=== PATIENT | male | born 1960 | race Caucasian/White ===

== ENCOUNTER 2018-03-19 06:21 | Day surgery (SDC) | payer OTHER ==
[~2018-03-19] VITALS: Ht 185.4 cm; Wt 121.6 kg
[~2018-03-19 06:21] MED LIST: ADVIL200 MG PO; LISINOPRIL-HCT1 EACH PO
--- NOTE | 2018-03-19 08:35 | NUR ---
[facility] AR[facility]IVED IN PACU SLEEPY WITH OXY MASK ON AT 5L. ABD SOFT. 0815 OXYGEN DECREASED TO 4L VIA OM WITH SATS 95%. 0820 OXYGEN DECREASED TO 2L VIA OM WITH SATS 94%. 0830 OXYGEN REMOVED. SATS 93% ON RA. ENCOURAGED CDB. PT MORE AWAKE AND SIPPING ON APPLE JUICE.
--- NOTE | 2018-03-19 10:44 | OR ---
[facility] [address], [place] [address] Signed DATE OF OPERATION: 03/19/2018 SURGEON: Paul Self MD UPPER AND LOWER ENDOSCOPY REPORT PREOPERATIVE DIAGNOSES: 1. Proximal esophageal dysphagia. 2. Screening. POSTOPERATIVE DIAGNOSES: 1. Moderate punctate hemorrhagic gastroduodenitis. 2. Moderate-sized hiatal hernia. 3. Distal esophagitis with linear ulcer. 4. 4 mm polyps at 145 and 18 cm. 5. Moderate internal hemorrhoids. PROCEDURES: 1. EGD with CLOtest and biopsies of the pyloric bulb, antrum and hiatal hernia. 2. Colonoscopy with hot biopsy. ESTIMATED BLOOD LOSS: None. INDICATIONS: Aung is a 57-year-old gentleman, asked to see me for both upper and lower endoscopy. He has had trouble with proximal esophageal dysphagia. He said particularly use pills. In 2007, his upper endoscopy showed a bit of gastritis. Colonoscopy was negative. As a result, he is also in need of followup screening colonoscopy. He told me there is no family history of colon cancer or polyps. I gave Aung booklets on upper and lower endoscopy in the office. He understands the nature of those 2 tests along with the risks including, but not limited to gas bloating, crampy abdominal pain, bleeding, perforation, requiring surgery, and missed diagnosis. He also understands the need for IV conscious sedation. He had expressed understanding and wished to proceed. PROCEDURE NOTE: Aung was taken into our endoscopy suite and placed in the supine semi-recumbent position. He was given a total of 10 mg of Versed and 200 mcg of fentanyl to cover both cases. He was also given antibiotic preop because of his bilateral hip replacements. The posterior oropharynx was anesthetized with Hurricaine spray. A bite block was Electronically Signed By: PAUL SELF MD 03/19/18 1044 PATIENT NAME: AUNG AGUIAR OPERATIVE REPORT DATE OF : 62 REPORT #: [id number] PHYSICIAN: PAUL SELF MD PCP: MICHELLE HEATON DO REPORT IS CONFIDENTIAL AND NOT TO BE RELEASED WITHOUT AUTHORIZATION [facility] [address], [place] [address] Signed utilized for the case. The adult gastroscope was introduced and advanced under direct visualization of the camera. We noticed that he has a fairly significant gag reflex even after Hurricaine spray. I suspect this is part of his issue was trying to swallow his pills. Eventually, after a few minutes we did get the scope into the esophagus and all the way out into the third portion of the duodenum. The duodenum was unremarkable except for the pyloric channel. It showed moderately significant inflammatory changes without an ulcer. We therefore took a biopsy of the pyloric bulb. The stomach also showed moderate punctate hemorrhagic gastritis throughout. We took a biopsy from the antrum for CLOtest as well as pathologic review. Upon retroflexion of the scope, he does have a hiatal hernia, but it was hard to see well because of the fluid in our way. I therefore withdrew this the scope up through the hiatal hernia and do suctioned out the fluid. We taken a biopsy just inside the hiatal hernia near the GE junction. He does have some disruption to the Z-line, but no Ramirez's esophagus. Although, he does have distal esophagitis consistent with some punctate areas of inflammation and a linear ulcer on the one side. No bleeding at this time. The middle and upper esophagus were unremarkable. After this, the gas was suctioned out and the gastroscope removed. Aung tolerated this procedure quite well. RECOMMENDATIONS: I will see Aung back in my office in 7 to 14 days to review his results. He needs to be on a proton-pump inhibitor twice a day for a good eight weeks to allow his stomach and his esophagus to heal than after that probably just once a day. Paul Self MD ALB/MODL /[id number] cc: DO Paul Zavaleta MD Copies: MICHELLE HEATON DO Electronically Signed By: PAUL SELF MD 03/19/18 1044 PATIENT NAME: AUGN AGUIAR OPERATIVE REPORT DATE OF : 62 REPORT #: [id number] PHYSICIAN: PAUL SELF MD PCP: MICHELLE HEATON DO REPORT IS CONFIDENTIAL AND NOT TO BE RELEASED WITHOUT AUTHORIZATION [facility] [address] [place] [address] Signed PAUL SELF MD ~ Electronically Signed By: PAUL SELF MD 03/19/18 1044 PATIENT NAME: AUNG AGUIAR OPERATIVE REPORT DATE OF : 62 REPORT #: [id number] PHYSICIAN: PAUL SELF MD PCP: MICHELLE HEATON DO REPORT IS CONFIDENTIAL AND NOT TO BE RELEASED WITHOUT AUTHORIZATION
--- NOTE | 2018-03-26 17:15 | OR ---
[facility] [address] [place], [place] [address] Signed DATE OF OPERATION: 03/19/2018 SURGEON: Paul Self MD PREOPERATIVE DIAGNOSIS: Screening. POSTOPERATIVE DIAGNOSES: 1. A 4 mm polyps at 145 and 18 cm. 2. Moderate internal hemorrhoids. PROCEDURE: Colonoscopy with hot biopsy. ESTIMATED BLOOD LOSS: None. INDICATIONS: Aung is a 57-year-old gentleman, who actually came for both his upper and lower endoscopy on 03/19/2018. We have already dictated his upper endoscopy. We are now dictating his colonoscopy. The colonoscopy is for screening purposes. He had a negative colonoscopy back in 2007. He said he has no family history of colon cancer or polyps. I gave him pamphlets on colonoscopy in the office and he understands the nature of that test along with the risks including, but not limited to, gas bloating, crampy abdominal pain, bleeding, perforation, requiring surgery, and missed diagnosis. He expressed understanding and wished to proceed. PROCEDURE NOTE: After Aung's upper endoscopy, we had rotated him into the left lateral decubitus position for his lower endoscopy. He had been given a total of 10 mg of Versed and 200 mcg of fentanyl to cover both cases. After this, a digital rectal exam was performed and this was unremarkable. The adult colonoscope was then introduced and advanced all around into the cecum under direct visualization of the camera. The above-mentioned polyps were removed with the help of hot biopsy forceps. Once down in the rectum, the scope had been retroflexed and he does have some internal hemorrhoids. After this, the gas was suctioned out and the colonoscope removed. Aung tolerated his procedures quite well. RECOMMENDATIONS: I will see Aung back in my office in 7 to 14 days to review his results. Electronically Signed By: PAUL SELF MD 03/26/18 1712 PATIENT NAME: AUNG AGUIAR OPERATIVE REPORT DATE OF : 62 REPORT #: [id number] PHYSICIAN: PAUL SELF MD PCP: ISSA HEATON DO REPORT IS CONFIDENTIAL AND NOT TO BE RELEASED WITHOUT AUTHORIZATION [address] [address] Signed MD DE Phillips/GLORIA /[id number] cc: MD Issa Phillips DO Copies: PAUL SELF MD, FRANK E DO ~ Electronically Signed By: PAUL SELF MD 03/26/18 1715 PATIENT NAME: AUNG AGUIAR OPERATIVE REPORT DATE OF : 62 REPORT #: [id number] PHYSICIAN: PAUL SELF MD PCP: ISSA HEATON DO REPORT IS CONFIDENTIAL AND NOT TO BE RELEASED WITHOUT AUTHORIZATION
== END 2018-03-19 08:50 | disposition home or self-care (01) ==
LOC: DS 06:21 → OPS 06:21 → DS 10:30
PROVIDERS: Colon & Rectal Surgery
PROC: 0DB48ZX Excision of Esophagogastric Junction, Via Natural or Artificial Opening Endoscopic, Diagnostic (ICD-10-PCS; 2018-03-19)
PROC: 0DBE8ZX Excision of Large Intestine, Via Natural or Artificial Opening Endoscopic, Diagnostic (ICD-10-PCS; 2018-03-19)
PROC: 0DB98ZX Excision of Duodenum, Via Natural or Artificial Opening Endoscopic, Diagnostic (ICD-10-PCS; principal; 2018-03-19 10:30)
PROC: 0DB78ZX Excision of Stomach, Pylorus, Via Natural or Artificial Opening Endoscopic, Diagnostic (ICD-10-PCS; 2018-03-19 10:30)
DX: Z12.11 Encounter for screening for malignant neoplasm of colon (principal); K63.5 Polyp of colon; K64.8 Other hemorrhoids; K29.50 Unspecified chronic gastritis without bleeding; K29.80 Duodenitis without bleeding; K44.9 Diaphragmatic hernia without obstruction or gangrene; K22.10 Ulcer of esophagus without bleeding; I10 Essential (primary) hypertension; F17.210 Nicotine dependence, cigarettes, uncomplicated; M47.816 Spondylosis without myelopathy or radiculopathy, lumbar region; M51.9 Unspecified thoracic, thoracolumbar and lumbosacral intervertebral disc disorder; K31.9 Disease of stomach and duodenum, unspecified; Z79.1 Long term (current) use of non-steroidal anti-inflammatories (NSAID); Z79.899 Other long term (current) drug therapy; Z29.8 Encounter for other specified prophylactic measures; Z96.643 Presence of artificial hip joint, bilateral
CPT/HCPCS: 86677; 99153; G0500; J2250; J3010; J7120

== ENCOUNTER 2023-03-18 05:49 | Day surgery (SDC) | payer OTHER ==
[2023-03-12 08:18] VITALS: BP 131/85
[~2023-03-18] VITALS: Ht 185.4 cm; Wt 118.2 kg
--- NOTE | ~2023-03-18 | OR ---
[facility] [address], [place] [address] Draft DATE OF OPERATION: 03/18/2023 SURGEON: Vinh Zurita MD PREOPERATIVE DIAGNOSIS: Incarcerated umbilical hernia. POSTOPERATIVE DIAGNOSIS: Incarcerated umbilical hernia, fascial defect 4 cm. PROCEDURES: 1. Repair of incarcerated umbilical hernia (fascial defect 4 cm). 2. Implantation of Prolene mesh underlay technique with reapproximation of fascia over mesh. ANESTHESIA: General LMA, Hamlet Patrick CRNA and local 10 mL of 0.25% Marcaine with epinephrine. INDICATION: This 62-year-old white man is a patient of KENNETH Helm and has seen Beatriz Colunga as well. He was evaluated by Beatriz Colunga for a bulge in the region of the umbilicus. He has had at least one or two episodes of severe abdominal pain. Clinical examination shows a somewhat tender hernia at the region of the umbilicus, which was not reducible, particularly. An ultrasound performed under the direction of KENNETH Silva, which showed a "fat containing supraumbilical ventral hernia." He is admitted at this time to undergo repair of the hernia. He understands the risk of bleeding, infection, recurrence and so on. FINDINGS: The incarcerated viscus was properitoneal fat. There was no sign of hollow viscus. The defect was ultimately 4 cm in size. Implantation of Prolene mesh in the properitoneal space was undertaken with an overlap of approximately 3 cm in closure of the fascial defect transversely. DESCRIPTION OF PROCEDURE: The patient was brought to the operating room, given a general LMA type anesthetic. Preoperative antibiotic Ancef was given. Sequential compression device stockings used and heparin subcutaneously administered. The central abdomen was clipped and prepared with a chlorhexidine solution and draped sterilely. A curvilinear incision was made to the left of the umbilicus and somewhat cephalad to it. Dissection was carried through PATIENT NAME: SAHRA AGUIAR OPERATIVE REPORT DATE OF : 62 REPORT #: [id number] PHYSICIAN: VINH ZURITA MD PCP: KYLE WEISS PA-C REPORT IS CONFIDENTIAL AND NOT TO BE RELEASED WITHOUT AUTHORIZATION [facility] [address], [place] [address] Draft the dermis with blunt and electrocautery dissection ultimately identifying the hernia sac contiguous with the dermis of the umbilical skin itself. This was dissected free with electrocautery. Once the umbilical skin and so forth was freed from the underlying hernia sac the fascia and the hernia sac was freed circumferentially. Herniated viscus appeared to be properitoneal fat and no sign of hollow viscus. This was ultimately placed into the properitoneal space. The properitoneal space was developed with a blunt and electrocautery dissection for approximately 3 cm circumferentially. The fascial defect was approximately 4 cm. A March 17, 2023of Prolene mesh was cut to a circular configuration and secured in the properitoneal space with interrupted 0 Prolene suture. The fascial defect was reapproximated directly over the mesh with interrupted 0 Prolene suture in a vertical mattress configuration. A 10 mL of 0.25% Marcaine with epinephrine was injected locally. The Timoteo layer was reapproximated with interrupted 2-0 Vicryl and the skin closed with running subcuticular 3-0 Vicryl. Steri-Strips were applied as was Acticoat dressing. The patient was ultimately extubated and transferred to recovery room in good condition having suffered no complications. Sponge, needle and instrument counts reported as correct x3. MD BRANDI Corley/ROXYL /[id number] cc: ALEKSANDRA Temple PA Copies: KYLE WEISS PA-C ~ PATIENT NAME: SAHRA AGUIAR OPERATIVE REPORT DATE OF : 62 REPORT #: [id number] PHYSICIAN: VINH ZURITA MD PCP: KYLE WEISS PA-C REPORT IS CONFIDENTIAL AND NOT TO BE RELEASED WITHOUT AUTHORIZATION
[~2023-03-18 05:49] MED LIST changes: +AZITHROMYCIN500 MG PO
[2023-03-18 06:08] VITALS: BP 122/80
--- NOTE | 2023-03-18 08:53 | NUR ---
03/18/23 0853 Sheets,Kim 0844 PT ARRIVED TO PACU ON 6L VIA MASK, PT MOVING AND AWAKE OFF AND ON PT REPORTS 4/10 PAIN AND NO NAUSEA. PAIN MEDICATION GIVEN BY LEARNING SUPPORT AIDE. 0848 O2 REMOVED. PLAN OF CARE DISCUSSED. 0852 O2 SAT LOW 90S AND DEEP BREATHING ENCOURAGED, EDUCATION GIVEN ON BRACING ABD WHILE COUGHING.
[2023-03-18] MEDS ORDERED: OXYCODON-ACETA1 EAC2 PO (08:56)
[2023-03-18] MEDS ORDERED: IBUPROFEN600 MG PO (08:56)
[2023-03-18] MEDS ORDERED: ACETAMINOPHEN500 MG PO (08:56)
[2023-03-18 09:15] VITALS: BP 116/72
--- NOTE | 2023-03-18 09:38 | NUR ---
[id number]: PT ARRIVES BACK TO DS RM 5 VIA STRETCHER DROWSY WITH NC IN PLACE. PT SATS GREATER THAN 90% WITH CONT PULSE OXIMETER IN PLACE. PT RATES PAIN 4/10 AND TOLERABLE AT THIS TIME. ABD BINDER IN PLACE AT BEDSIDE PER DR. ZURITA TO BE PLACED ONCE PT IS UP. DC CRITERIA EXPLAINED TO PT, CALL LIGHT WITHIN REACH. LIGHTS DIMMED WITH CLEAR VISIBILITY OF PT THROUGH GLASS DOOR.
[2023-03-18 10:18] VITALS: BP 107/76
--- NOTE | 2023-03-18 10:21 | NUR ---
PT RESTING IN BED AWAKE WATCHING TV. PT RATES PAIN 4/10 AND TOLERABLE AT THE MOMENT. PT EDUCATED ABOUT PAIN AND MOVEMENT, ENC TO EAT AND TRY PO PAIN RX PRIOR TO GETTING UP. CALL LIGHT REMAINS IN PLACE.
--- NOTE | 2023-03-18 10:49 | NUR ---
1040: PT WITH CALL FOR THIS RN. REPORTS URGE TO VOID. DANGLED AT THE BEDSIDE, FRED WELL. DENIES DIZZINESS AND SOB. AMBULATES TO BR WITH STANDBY FROM THIS RN. STEADY GAIT. SUCCESSFUL FIRST POSTOP VOID, 200MLS. TO ROOM 5 TO DRESS FOR DC
--- NOTE | 2023-03-18 10:53 | NUR ---
PT FAMILY CONTACTED FOR SAFE RIDE HOME, WILL BE HERE IN ABOUT 20 MINUTES. PT DRESSED AND EATING CRACKERS IN BED. PT DENIES USE OF ABDOMINAL BINDER AT THIS TIME.
[2023-03-18 11:05] VITALS: BP 120/67
--- NOTE | 2023-03-18 11:46 | NUR ---
1105: DC INSTRUCTIONS PRESENTED VERBALLY AND WRITTEN TO PT. PT AWARE OF NEED TO TAKE PAIN RX TO PHARMACY TO HAVE FILLED. PT TRANSFERS SELF FROM STRETCHER TO INDEPENDENTLY AND IS TRANSFERRED TO [facility]AF[facility] RIDE [facility]OSPITAL ENTRANCE VIA TO HOME.
--- NOTE | 2023-03-18 11:51 | NUR ---
CONNECTED WITH PT HE WAS BEING TAKEN TO FAMILY FOR RIDE HOME FOLLOWING DC. GAVE ENCOURAGEMENT, PT ACKNOWLEDGED.
== END 2023-03-18 11:15 | disposition home or self-care (01) ==
LOC: DS 05:49
PROVIDERS: ATTEND Surgery
PROC: 0WUF0JZ Supplement Abdominal Wall with Synthetic Substitute, Open Approach (ICD-10-PCS; principal; 2023-03-18 07:30)
DX: K42.0 Umbilical hernia with obstruction, without gangrene (principal); I10 Essential (primary) hypertension; Z72.0 Tobacco use; K21.9 Gastro-esophageal reflux disease without esophagitis; Z96.649 Presence of unspecified artificial hip joint
CPT/HCPCS: 00750; C1781; J0131; J0690; J1100; J1644; J1885; J2405; J2704; J3010; J7121